=== PATIENT | male | born 1930 | race Caucasian/White ===

== ENCOUNTER 2016-12-13 12:08 | Inpatient (IN) | payer MEDICARE, BC ==
--- NOTE | 2016-12-13 14:10 | NUR ---
Received patient from [facility], patient was admitted there on 11/24/16 for following hospitalization for Flu like symptoms, he was admitted there for Therapy, patient over several weeks has been getting increasingly confused, agitated, combative with staff and family, in and out of residents room and decrease sleep. Arrived here per [facility] staff in W/C, head down and will not verbalize to staff, he however tightly holds his arms back and snatches arm away with attempts to obtain vital signs and assess for any belongings, refusing to cooperate. Chair alarm placed and is functioning properly. Patient transported to day room. Contacted patient son Tristan Crawford who is POA, consent obtained to treat, gave medical history of no known Dementia but would like him tested, reports that up until hospitalization in November patient was with it and taking care of himself. States goal of patient returning home if diagnosis does not permit this, if so he has spoken with social media analyst Soco at [facility], sheo states willing to accept him there until he can get some arrangements made. Educated on unit and plan of care to be established, visitation hours , call hours and unit number to call for updates. Verbalized understanding.
[2016-12-13] MEDS ORDERED: MELATONIN 3 MG1 TAB PO (15:05)
[2016-12-13] MEDS ORDERED: LANTUS INSULIN10 ML SC (15:06)
[2016-12-13] MEDS ORDERED: FLOMAX0.4 MG PO (15:07)
[2016-12-13] MEDS ORDERED: GLUCOTROL 5 MG T5 MG PO (15:08)
[2016-12-13] MEDS ORDERED: MEXITIL 150 MG150 MG PO (15:09)
[2016-12-13] MEDS ORDERED: SEROQUEL25 MG PO (15:09)
[2016-12-13] MEDS ORDERED: ATIVAN0.5 MG PO (15:10)
[2016-12-13] MEDS ORDERED: NOVOLOG100 U/M1 SC (15:16)
[2016-12-13] MEDS ORDERED: HUMALOG 30100 UNITS/ SQ (15:32)
[2016-12-13 15:33] LABS: BASOPHILS 1.1 % (0.0-2.0); EOSINOPHILS 8.9 % (0-7); HEMATOCRIT 37.2 % (42.0-54.0); IMMATURE GRANULOCYTES 0.2 % (0-5); LYMPHOCYTES 37.1 % (15-50); MCH 29.6 pg (26.0-34.0); MCHC 32.3 g/dL (31.0-37.0); MCV 91.9 fL (80.0-100.0); MEAN PLATELET VOLUME 9.8 fL (7.4-10.4); MONOCYTES 9.8 % (2-11); NEUTROPHILS 42.9 % (40-80); PLATELET COUNT 182 10x3/uL (130-400); RBC 4.05 10x6/uL (4.20-6.10); RDW 13.6 % (11.5-14.5); WBC 4.5 10x3/uL (4.8-10.8)
[2016-12-13] MEDS ORDERED: NOVOLOG100 U/M1 SQ (15:36)
[2016-12-13 15:58] LABS: HEMOGLOBIN A1C 8.7 % (4.8-6.0)
[2016-12-13 16:00] VITALS: BP 119/76
--- NOTE | 2016-12-13 16:00 | NUR ---
Patient now cooperative for vital signs and partially for EKG, required assistance. Continues to resist complete assessment.
[2016-12-13 16:35] LABS: ALBUMIN 3.4 g/dL (3.4-5.0); ALKALINE PHOSPHATASE 79 U/L (46-116); ALT (SGPT) 20 U/L (10-68); BILIRUBIN - TOTAL 0.27 mg/dL (0.2-1.3); CALC OSMOLALITY 281 mosm/kg (275-300); CALCIUM 8.9 mg/dL (8.5-10.1); CARBON DIOXIDE 26.9 mmol/L (21.0-32.0); CHLORIDE - SERUM 104 mmol/L (98-107); CHOL - HDL RATIO 2.6 ratio (2.3-4.9); CHOLESTEROL, TOTAL 179 mg/dL (0-200); CREATININE - SERUM 0.9 mg/dL (0.6-1.3); GLUCOSE 136 mg/dL (74-106); HDL CHOLESTEROL 69 mg/dL (32-96); LDL CHOLESTEROL 88 mg/dL (0-100); LDL-HDL RATIO 1.3 ratio (1.5-3.5); POTASSIUM - SERUM 3.8 mmol/L (3.5-5.1); PROTEIN - SERUM 6.8 g/dL (6.4-8.2); SODIUM 141 mmol/L (136-145); THYROID STIMULATING HORMONE 6.01 uIU/mL (0.36-3.74); TRIGLYCERIDE 112 mg/dL (30-200); UREA NITROGEN 9 mg/dL (7-18); eGFR NON AFRICAN AMERICAN 85 mL/min (90-120)
--- NOTE | 2016-12-13 17:15 | NUR ---
Refused to eat supper, continues to refuse assessment,looks at nurse and turns his head, would not answers nurse questions, only would knod no to question of if he had dentures.
--- NOTE | 2016-12-13 20:08 | NUR ---
RECEIVED IN DAYROOM. SITTING IN WHEELCHAIR. AGGRESSION WITH STAFF DURING CARE. REFUSED VITALS. ALLOWED BASIC ASSESSMENT BY NURSE. VERY HEAD OF HEARING. REDIRECT AND REORIENT NEEDED. CONTINUES TO SIT IN WHEELCHAIR WITH EYES CLOSED. CONTINUE PLAN OF CARE
[2016-12-14 08:51] VITALS: BP 91/74
--- NOTE | 2016-12-14 18:00 | NUR ---
RECEIVED THIS AM SITTING IN WHEELCHAIR.ORIENTED TO SELF ONLY.NO SIGNS OF AGGRESSION .COMPLIANT WITH MEDS.KAKE.DOES BECOME NONCOMPLIANT LATE IN EVENING WITH STAFF.WILL CONTINUE WITH PLAN OF CARE,MONITOR FOR CHANGES AND SAFETY.
--- NOTE | 2016-12-14 19:34 | NUR ---
RECEIVED IN DAYROOM. SITTING IN WHEELCHAIR WITH EYES CLOSED. RESPONDS TO TOUCH. VERY HARD OF HEARING. CALM AND COOPERATIVE WITH CARE AND ASSESSMENT. NO SIGNS OF AGGRESSION. ENCOURAGE TO EXPRESS NEEDS. CONTINUES TO REST WITH EYES CLOSED. CONTINUE PLAN OF CARE
[2016-12-14 22:25] VITALS: BP 91/53
[2016-12-15 06:14] LABS: RAPID PLASMA REAGIN Non Reactive (Non Reactive)
[2016-12-15 08:21] LABS: FOLATE (FOLIC ACID) - SERUM 16.6 ng/mL (>3.0)
[2016-12-15 08:44] VITALS: BP 101/66
[2016-12-15 09:18] LABS: VITAMIN D 25 HYDROXY 17.6 ng/mL (30.0-100.0)
--- NOTE | 2016-12-15 11:13 | NUR ---
B) PATIENT IS CONFUSED, HE KNOWS HIS NAME, BUT NOT WHERE HE IS LOCATED, HE IS CALM AND POLITE, HE HAS NOT SHOWN ANY AGGRESSION TODAY, HE HAS TRIED TO GET UP AND STAND, BUT HE IS UNSTEADY, UNSURE IF HE WALKS. HE DOES SAY HE IS LOOKING FOR HIS AND CALLS OUT DIFFERENT LADIES NAMES. HE HAS ANSWERED SOME QUESTIONS APPROPRIATELY. I) PROVIDE PRESCRIBED MEDS. R) PATIIENT IS COMPLIANT WITH MEDS AND HE REQUIRES MUCH REDIRECTION. P) CONTINUE PLAN OF CARE.
[2016-12-15 20:00] VITALS: BP 98/60
--- NOTE | 2016-12-15 23:19 | NUR ---
B) Recieved patient in the day room in a cody chair, alert and oriented to name, restless and combative with redirect, patient tries to stand unassisted, I) Administered perscribed medications crushed in apple sauce, monitored for falls and safety, R) medication compliant, yells out at times, talks in word salad and unrelated topics at times. P) Continue plan of care.
--- NOTE | 2016-12-15 23:23 | NUR ---
PRN Haldol 2 mg IM given for anxiety at 2140.
[2016-12-16 09:05] VITALS: BP 120/65
--- NOTE | 2016-12-16 10:26 | PSY ---
PATIENT NAME:MO PRECIADO MEDICAL RECORD: [id number] : 28 LOCATION:[facility] ADMISSION DATE: 12/13/16 ACCOUNT: [id number] PSYCHIATRIC EVALUATION DATE OF EVALUATION: 12/14/16 IDENTIFYING DATA: This is the first Alf admission for this 86-year-old white male. HISTORY OF PRESENT ILLNESS: This patient was accepted on transfer from [facility]. He had been admitted there in the middle of last month. Prior to that, he had been hospitalized because of an apparent viral syndrome and overall decline. During his stay at [place], the patient has shown considerably worsened mentation. He has become increasingly confused and disoriented showing severe memory deficits. He has also began exhibiting aggressiveness and poor cooperation with staff. Because of worsening agitation and the fact that patient is now intruding on other clients at the custodial and has been combative, not only with staff, but with his own family members, the patient is now admitted. Subsequent to admission, the patient has been extremely uncooperative. He is briefly combative when staff attempts to do ordinary activities such as vital signs and so forth. He has been virtually mute (this may be worsened by the fact that he has hearing impairment). There is no previous history of dementia. The patient will undergo testing here. The patient's son is power of deputy commonwealth's attorney. PAST MEDICAL HISTORY: The patient has a number of ongoing medical problems including type 2 diabetes, hypertension, hypothyroidism, cardiac arrhythmias, history of prostate cancer and the above-mentioned hearing impairment. MEDICATIONS: At the time of admission included Flomax, Synthroid, Glucotrol, melatonin, Seroquel, ____, Lantus insulin. FAMILY HISTORY: Noncontributory. ALLERGIES: THE PATIENT IS ALLERGIC TO PENICILLIN DRUGS. SOCIAL HISTORY: The patient is a custodial resident. He does have family involved in his care. No known substance abuse issues. MENTAL STATUS: On interview, the patient is very poorly cooperative. He orients only briefly toward the examiner, does not cooperate any meaningful degree for interview. Mood is irritable. Affect is very brittle. Speech is quite terse. Content of thought cannot be formally assessed, but appears to be positive for paranoid ideation. The patient is oriented only to person and shows global memory impairment. 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 AXIS II: No diagnosis. AXIS III: Type 2 diabetes, hypertension, hypothyroidism, cardiac arrhythmias, history of prostate cancer. AXIS IV: Severe. AXIS V: 30. PLAN: 1. The patient is admitted for further medical and psychiatric workup. 2. Daily supportive therapy. 3. We will coordinate with family and custodial regarding aftercare. TRANSINT:[id number] Voice Confirmation ID: [id number] DOCUMENT ID: [id number] NLIES REES III, MD at 1026 CC: [id number] DICTATION DATE: 12/14/16 1119 INTERNET CONSULTANT: 12/14/16 1141 ADM IN [facility] [address] [place] [place] [id number]
--- NOTE | 2016-12-16 11:26 | NUR ---
B) PATIENT IS QUIET AND CALM, BUT HE IS CONFUSED. HE FUSSES ABOUT HIS MEDICATIONS, BUT IRIS WAS ABLE TO GIVE HIS MEDS. HE QUESTIONED EVERY ONE, BUT DID TAKE THEM. 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 I) PROVIDE PRESCRIBED MEDS AND REDIRECT NEEDED. R) PATIENT IS SITTING IN DAY ROOM AND SHE IS RESTING EASILY. P) CONTINUE PLAN OF CARE.
--- NOTE | 2016-12-16 13:59 | NUR ---
Nutrition Follow Up: Chart reviewed. Pt is eating 85% meal avg on a diabetic [facility] soft diet with nectar thick liquids. No BM since admit. No new labs/wt to assess. Meds noted including Glipizide, Lantus. Pt with good po intake at this time. Rec continue current diet per [employer] recs. RD following.
--- NOTE | 2016-12-16 14:31 | PN ---
PATIENT:MO PRECIADO MEDICAL RECORD: [id number] LOCATION:[facility] ADMISSION DATE: 12/13/16 PROGRESS NOTE DATE OF SERVICE: 12/15/2016 SUBJECTIVE: The patient's case was discussed with staff. He has no new complaint. OBJECTIVE: The patient has been aggressive with staff. He has very poor insight about his situation. He is severely impaired and he is having difficulty processing the information in his environment. He will be given a low dose of Xanax to assist with his thought disorganization. His prognosis is guarded and brief supportive and educational interventions were made. TRANSINT:[id number] Voice Confirmation ID: [id number] DOCUMENT ID: [id number] BURT ALMONTE MD at 1431 CC: [id number] DICTATION DATE: 12/15/[address] PAINTER: 12/15/16 1425 ADM IN [place] [id number] [place] [id number]
[2016-12-16 19:30] VITALS: BP 93/61
--- NOTE | 2016-12-16 22:07 | PN ---
PATIENT:MO PRECIADO MEDICAL RECORD: [id number] LOCATION:[facility] ADMISSION DATE: 12/13/16 PROGRESS NOTE DATE OF SERVICE: 12/16/2016 SUBJECTIVE: No new complaint. OBJECTIVE: The patient continues to be poorly cooperative. He did require p.r.n. Haldol last night because of agitation. This morning, the patient is more drowsy. Mood is euthymic. Affect is constricted. Speech is very terse. Content of thought is positive for nonspecific paranoid ideation. Sensorium is unchanged. ASSESSMENT: No change in diagnosis. PLAN: 1. Maintain current medications. 2. Continue supportive therapy. TRANSINT:[id number] Voice Confirmation ID: [id number] DOCUMENT ID: [id number] NILES REES III, MD at 2207 CC: [id number] DICTATION DATE: 12/16/16 1145 ECOMMERCE MANAGER: 12/16/16 1426 ADM IN [place] [address] [place] [address]
--- NOTE | 2016-12-17 01:07 | NUR ---
B) Recieved patient sitting in gerichair in the day room, alert and oriented to self, restless and attempting to stand unassisted I) Administered perscribed medications, PRN Ativan 0.5 mg PO and Haldol 2 mg IM given for anxiety R) Medication compliant, resting quietly now, P) Continue plan of care.
--- NOTE | 2016-12-17 07:49 | NUR ---
LATE ENTRY FROM 12/16/16 RAOUL SPOKE WITH PT'S SON, AYESHA, ABOUT DISCHARGE PLANNING AND PLACING PT IN CHECKERING MACHINE ADJUSTER CARE. RAOUL ALSO EDUCATED SON ON DISEASE PROCESS AND HANDED OUT BROCHURES ON [employer]. RAOUL SET [facility] S[facility] WITH [facility] DEAF RIZWAN DIXON.
[2016-12-17 08:32] VITALS: BP 117/68
--- NOTE | 2016-12-17 09:40 | NUR ---
B) PATIENT IS CONFUSED, HE IS SITTING IN A SHAVON CAHIR AND HE TURNS HIMSELF SIDEWAYS IN THE CHAIR AND HAS HIS FEET DANGLING OUT, HIS BACK IS ON THE WOOD. HE LEANS OVER AND REACHES FOR OBJECTS THAT ARE NOT THERE. HE IS NOT AGGRESSIVE AT THE TIME, BUT WHEN PT CAME TO WORK WITH HIM HE DID BECOME AGITATED AND AGGRESSIVE. PATIENT IS [place]. I) PROVIDE PRESCRIBED MEDS. R) PATIENT IS COMPLIANT WITH MEDS, HE HAS TO FED AND GIVEN FLUIDS HE WILL NOT DO IT HIMSELF, BUT JUST BRIEFLY. P) CONTINUE PLAN OF CARE.
[2016-12-17 19:30] VITALS: BP 135/92
--- NOTE | 2016-12-17 20:00 | NUR ---
B) RECEIVED IN DAYROOM SITTING IN SHAVON-CHAIR WITH EYES CLOSED. CALM AND QUIET WITH ASSESSMENT. NO DISTRESS NOTED. I) ADMINISTERED PRESCRIBED MEDS CRUSHED IN APPLESAUCE. VSS. R) MEDICATION COMPLIANT. RESTLESS. P) CONTINUE PLAN OF CARE.
[2016-12-18 07:44] VITALS: BP 99/49
--- NOTE | 2016-12-18 12:16 | NUR ---
(B)RECEIVED PATIENT LAYING IN BED. ORIENTED TO SELF ONLY. POOR INSIGHT INTO THE REASON FOR HOSPITALIZATION. SPEECH GARBLED. DIFFICULTY FOLLOWING INSTRUCTIONS. (I)ADMINISTER MEDS AND MONITOR COMPLIANCE. REORIENT NEEDED. (R)MED COMPLIANT. POOR REORIENTATION DUE TO IMPAIRED ABILITY TO COMPREHEND, PROCESS AND RETAIN INFORMATION. MUMBLES TO SELF AND REACHES INTO MID AIR. (P)CONTINUE POC AND MAINTAIN FALL PRECAUTIONS.
--- NOTE | 2016-12-18 21:50 | NUR ---
B) Received patient in [facility]. Called Eap Consultant x 3 for Risperdal as is not in [facility]. Awaiting medication to be delivered to unit, patient has taken all his other medications crushed in chocolate pudding. Refused his vital signs being taken, made several attempts to obtain but each time patient swatted at staff. Did not obtain. Moans at times, flat affect unless trying to perform care then becomes angry. I) Administer medications as ordered, monitor behavior, redirect and reorient PRN. Educate on anger management. R) Does not answer or respond verbally to staff, uncertain if he even knows his name. Could be or could not be oriented to person. When approached with his medications and called by name said 'ok' and seemed to acknowledge his name. P) Monitor per plan of care.
--- NOTE | 2016-12-18 23:21 | NUR ---
AIR DEODORIZER SERVICER JUST NOW ON UNIT WITH 2100 DOSE OF RISPERDAL. SAME GIVEN IN CHOCOLATE PUDDING.
--- NOTE | 2016-12-19 06:18 | PN ---
PATIENT:MO PRECIADO MEDICAL RECORD: [id number] LOCATION:[facility] ADMISSION DATE: 12/13/16 PROGRESS NOTE DATE OF SERVICE: 12/17/2016 SUBJECTIVE: No new complaint. OBJECTIVE: The patient continues to be restless at night. He did require p.r.n. Haldol and Ativan. Today, the patient is not as responsive. He continues to show profound mental status deficits. He was essentially untestable for neuropsychological testing. On exam, mood is euthymic. Affect is constricted. Speech is minimal. Content of thought seems to focus only on somatic concerns. Sensorium shows no improvement. ASSESSMENT: No change in diagnosis. PLAN: 1. Maintain current medication. 2. Continue supportive therapy. TRANSINT:[id number] Voice Confirmation ID: [id number] DOCUMENT ID: [id number] NILES REES III, MD at 0618 CC: [id number] DICTATION DATE: 12/17/16 1234 DEPUTY K 9: 12/17/16 2108 ADM IN [place] [id number] [place] [id number]
[2016-12-19 07:48] VITALS: BP 117/76
--- NOTE | 2016-12-19 16:59 | NUR ---
RECEIVED UP IN RECLINER THIS AM SLEEPING.WAS UNABLE TO AROUSE ENOUGH TO ADMINISTER MEDS.SON VISITED AND WAS ABLE TO GET HIM TO OPEN EYES BUT HE WENT RIGHT BACK TO SLEEP.RESP ARE REGULAR AND EVEN,NO SIGNS OF ACUTE DISTRESS.WILL CONTINUE WITH PLAN OF CARE AND MONITOR FOR SAFETY AND CHANGES.
[2016-12-19 19:30] VITALS: BP 165/79
--- NOTE | 2016-12-20 00:37 | NUR ---
PATIENT IN DAYROOM, LAYING IN RECLINER. RESPONDS TO NAME AND FOLLOWS COMMANDS. COMPLIANT WITH MEDICATION. NO AGRESSION, TRIES TO GET UP WITHOUT ASSISTANCE. PATIENT REORIENTED, BUT IS VERY CONFUSED. PATIENT ORIENTED TO SELF ONLY. CONTINUE TO MONITOR.
[2016-12-20 07:46] VITALS: BP 108/47
--- NOTE | 2016-12-20 08:45 | PN ---
PATIENT:MO PRECIADO MEDICAL RECORD: [id number] LOCATION:[facility] ADMISSION DATE: 12/13/16 PROGRESS NOTE DATE OF SERVICE: 12/19/2016 SUBJECTIVE: No new complaint. OBJECTIVE: The patient continues to exhibit agitation at night. He was briefly combative with staff this morning. The patient is next quieter, but remains somewhat restless. On exam, mood is rather irritable. Affect is brittle. Speech is very terse. Content of thought is negative for overt psychosis. Sensorium is unchanged. ASSESSMENT: No change in diagnosis. PLAN: 1. Maintain current treatment plan. 2. Continue supportive therapy. TRANSINT:[id number] Voice Confirmation ID: [id number] DOCUMENT ID: [id number] NILES REES III, MD at 0845 CC: [id number] DICTATION DATE: 12/19/16 0827 GAS PUMPER: 12/19/16 1048 ADM IN [place] [id number] [place] [address]
[2016-12-20 13:00] VITALS: BP 105/60
--- NOTE | 2016-12-20 17:45 | NUR ---
Alert and oriented to name, resistant to care, pulls his arms back and pushes staff away. Administer medications and monitor compliance. Monitor for any aggression. Assist with meals and encourage fluids. Monitor safety. Compliant with am medications and drank alittle water, allowed tech to feed him breakfast, consumed 80 %. No aggression, just pulls against you with any care. Refused 1700 medication. Safety maintained. Continue with plan of care.
--- NOTE | 2016-12-20 18:01 | NUR ---
fluids encouraged, patient only would take a few sips at a time.
--- NOTE | 2016-12-20 19:55 | NUR ---
RECEIVED IN DAYROOM. LAYING IN RECLINING CHAIR. CONFUSED. CALM AND COOPERATIVE WITH CARE AND ASSESSMENT. NO SIGNS OF AGGRESSION. REDIRECT AND REORIENT NEEDED. CONTINUES TO REST QUIETLY IN RECLINER. CONTINUE PLAN OF CARE
[2016-12-20 20:00] VITALS: BP 103/63
[2016-12-21 07:25] VITALS: BP 96/52
--- NOTE | 2016-12-21 09:51 | NUR ---
(B)RECEIVED PATIENT SITTING IN A CHAIR AT THE NURSE'S STATION. ORIENTED TO SELF ONLY. YELLING OUT LOUD. DIFFICULTY FOLLOWING INSTRUCTIONS. (I)ADMINISTER MEDS AND MONITOR COMPLIANCE. REORIENT NEEDED. (R)MED COMPLIANT. POOR REORIENTATION DUE TO IMPAIRED ABILITY TO COMPREHEND, PROCESS AND RETAIN INFORMATION. (P)CONTINUE POC AND MAINTAIN FALL PRECAUTIONS.
--- NOTE | 2016-12-21 10:19 | PN ---
PATIENT:MO PRECIADO MEDICAL RECORD: [id number] LOCATION:[facility] ADMISSION DATE: 12/13/16 PROGRESS NOTE DATE OF SERVICE: 12/20/2016 SUBJECTIVE: No new complaint. OBJECTIVE: Staff reports the patient has become considerably more lethargic. He slept most of the night and is drowsy again this morning medication was held yesterday morning. On exam, mood is euthymic. Affect very constricted. Speech minimal. Content of thought unchanged. Sensorium unchanged. ASSESSMENT: No change in diagnosis. PLAN: 1. Discontinue Xanax. 2. Reduce Risperdal to 0.5 mg b.i.d. 3. Continue other current medications and supportive therapy. TRANSINT:[id number] Voice Confirmation ID: [id number] DOCUMENT ID: [id number] NILES REES III, MD at 1019 CC: [id number] DICTATION DATE: 12/20/16 1046 RAMP LEAD: 12/20/16 1447 ADM IN [place] [id number] [place] [id number]
--- NOTE | 2016-12-21 15:26 | NUR ---
NUTRITION MONITORING & EVAL CHART REVIEWED. SPOKE WITH NURSING AND CREAM SEPARATOR OPERATOR. PT WITH 45% AVERAGE INTAKE PAST FOUR MEALS. LAST RECORDED BM ON 12/17/16. WILL CONTINUE TO PROVIDE MECH SOFT NCS DIET. MONITOR PT PROGRESS. RD FOLLOWING
[2016-12-21 19:16] VITALS: BP 130/77
--- NOTE | 2016-12-21 19:43 | NUR ---
Received in dayroom. Laying in reclining chair with eyes closed. Responds to touch. Not yelling out. Calm and cooperative with care and assessment. No signs of aggression. encourage to verbalize needs. Remains in recliner with eyes closed. Continue plan of care.
[2016-12-22 08:06] VITALS: BP 114/63
--- NOTE | 2016-12-22 10:21 | PN ---
PATIENT:MO PRECIADO MEDICAL RECORD: [id number] LOCATION:[facility] ADMISSION DATE: 12/13/16 PROGRESS NOTE DATE OF SERVICE: 12/21/2016 SUBJECTIVE: No new complaint. OBJECTIVE: The patient continues to show occasional agitation, but overall is improved. He is tolerating his medications and not as somnolent this morning as on previous recent mornings. On exam, mood is slightly anxious. Affect is very constricted. Speech is nonsensical. Content of thought is negative for overt psychosis. Sensorium shows no change. ASSESSMENT: No change in diagnosis. PLAN: 1. Continue current medications. 2. Continue supportive therapy. TRANSINT:[id number] Voice Confirmation ID: [id number] DOCUMENT ID: [id number] NILES REES III, MD at 1021 CC: [id number] DICTATION DATE: 12/21/16 1134 IT INFRASTRUCTURE SPECIALIST: 12/21/16 1757 ADM IN [place] [id number] [place] [address]
--- NOTE | 2016-12-22 18:01 | NUR ---
(B) RECEIVED PATIENT SITTING IN A CHAIR AT THE NURSE'S STATION. MORE LETHARGIC TODAY. MUMBLES UNRECOGNIZABLE WORDS. WILL OPEN EYES FOR SHORT PERIODS. OBSERVED REACHING INTO MID AIR AT TIMES. (I)ADMINISTER MEDS AND MONITOR COMPLIANCE. PROMPT PATIENT TO EAT MEALS. (R)MED COMPLIANT. REMAINS LETHARGIC WITH LITTLE INTAKE. (P)CONTINUE POC AND MAINTAIN FALL PRECAUTIONS.
[2016-12-22 20:39] VITALS: BP 140/70
--- NOTE | 2016-12-23 00:24 | NUR ---
B) Recieved patient laying in a cody chair in the day room, sleeping , will open eyes for when arroused for short periods of time, I) Administered perscribed medications, monitored for safety and falls, R) Medication compliant after several attempts, P) Continue plan of care, continue to monitor.
--- NOTE | 2016-12-23 03:55 | PN ---
PATIENT:MO PRECIADO MEDICAL RECORD: [id number] LOCATION:[facility] ADMISSION DATE: 12/13/16 PROGRESS NOTE DATE OF SERVICE: 12/22/2016 SUBJECTIVE: No new complaint. OBJECTIVE: The patient is somewhat more alert. He is tolerating his medications well at this point. Family has been in contact with case management. They are considering trying to get hospice home health, but it is unclear as to whether or not this can be accomplished. On exam, mood is slightly anxious. Affect is constricted. Speech is rather terse. Content of thought is negative for overt psychosis. Sensorium is unchanged. ASSESSMENT: No change in diagnosis. PLAN: 1. Continue present medications. 2. Continue supportive therapy. TRANSINT:[id number] Voice Confirmation ID: [id number] DOCUMENT ID: [id number] NILES REES III, MD at 0355 CC: [id number] DICTATION DATE: 12/22/16 1131 ASSEMBLER MUSICAL EQUIPMENT: 12/22/[address] [facility] [address] [place] [address]
--- NOTE | 2016-12-23 14:32 | NUR ---
(B)RECEIVED PATIENT SITTING IN A CHAIR AT THE NURSE'S STATION. ORIENTED TO SELF ONLY. POOR INSIGHT INTO THE REASON FOR HOSPITALIZATION. LETHARGIC HOWEVER IS ALERT AT TIMES AND IS ABLE TO FEED SELF WHEN AWAKE. GARBLED AND MUMBLES. (I)ADMINISTER MEDS AND MONITOR COMPLIANCE. REORIENT NEEDED. (R)MED COMPLIANT. POOR REORIENTATION APPEARS TO NOT COMPREHEND, PROCESS OR RETAIN INFORMATION. (P)CONTINUE POC AND MAINTAIN FALL PRECAUTIONS.
[2016-12-23 20:59] VITALS: BP 109/37
--- NOTE | 2016-12-24 02:18 | NUR ---
PATIENT IN DAYROOM IN RECLINER, LETHARGIC, RESPONDS TO NAME AND FOLLOWS DIRECTION. HE WAS COMPLIANT WITH MEDICATION, NO AGGRESSION. PATIENT IS INTERMITTENTLY TALKING TO SELF, SHOWING SIGNS OF HALLUCINATIONS. HE WAS REORIENTED. CONTINUE TO MONITOR.
--- NOTE | 2016-12-24 07:30 | NUR ---
B) PATIENT IS AWAKE AND HE IS TALKING NONSENSICAL. GENERAL HELPER REPORTED THAT HE HAS A DECUB TO UPPER BUTTOCKS AND AND A BLISTER ON LUWER LUMBAR, MEPILEX APPLIED AND PLACED PATIENT ON A LUKE MAT, WILL ASK DR. BLANCO ABOUT WOUND CARE CONSULT. I) PROVIDE PRESCRIBED MEDS, REPOSITION Q 2 HOURS TO GET PATIENT OFF OF BUTTOCKS. R) PROVIDE PRESCRIBED MEDS. P) CONTINUE PLAN OF CARE.
[2016-12-24 07:53] VITALS: BP 98/56
--- NOTE | 2016-12-24 10:33 | NUR ---
HELD PATIENT'S AM MEDS BECAUSE HE IS TOO SLEEPY AT THIS TIME.
--- NOTE | 2016-12-24 10:57 | NUR ---
HELD AM MEDS PATIENT IS TOO SLEEPY.
--- NOTE | 2016-12-24 13:38 | PN ---
PATIENT:MO PRECIADO MEDICAL RECORD: [id number] LOCATION:[facility] ADMISSION DATE: 12/13/16 PROGRESS NOTE DATE OF SERVICE: 12/23/2016 SUBJECTIVE: The patient's case was discussed with staff. He has no new complaint. OBJECTIVE: The patient is in good behavioral control, but a little bit sleepy. He is not eating very well. His long-term prognosis is guarded. ASSESSMENT: No change in diagnoses. PLAN: The patient will be maintained on current medicines, which I have been reviewed. His long-term prognosis is guarded. TRANSINT:[id number] Voice Confirmation ID: [id number] DOCUMENT ID: [id number] BURT ALMONTE MD at 1338 CC: [id number] DICTATION DATE: 12/23/16 1246 CRYPTOANALYSIS TEACHER: 12/23/16 1606 ADM IN [facility] [address] [place] [address]
--- NOTE | 2016-12-24 14:43 | NUR ---
LATE ENTRY FROM 12/23/16 RAOUL MET WITH PT'S SON, AYESHA, TO DISCUSS DISCHARGE PLANNING. RAOUL INFORMED HIM THAT PT HAD BEEN ACCEPTED BY [facility]. PT WILL BE RETURNING HOME. RAOUL STATED FAMILY SHOULD HAVE A BACK UP PLAN IN PLACE IN CASE IN HOME CARE BECOMES DIFFICULT. SW SET UP PT'S SON WITH [facility] REFERRALS, PERSONAL [facility] REFERRALS, AND IN HOME SITTERS. PT'S SON EXPRESSED GRATITUDE FOR EDUCATION AND RESOURCES.
[2016-12-24 19:30] VITALS: BP 115/70
--- NOTE | 2016-12-25 01:40 | NUR ---
B) RECEIVED IN DAYROOM SITTING IN RECLINER. AWAKE AND ORIENTED TO NAME ONLY. STILL VERY CONFUSED, WITH MUMBLED AND GARBLED SPEECH. NO AGGRESSION NOTED. I) ADMINISTERED PRESCRIBED MEDICATIONS CRUSHED IN APPLESAUCE. VSS. R) MEDICATION COMPLIANT. CALM AND COOPERATIVE WITH ASSESSMENT AND CARE. P) CONTINUE WITH CURRENT PLAN OF CARE AND MONITOR FOR SAFETY AND CHANGES.
[2016-12-25 09:32] VITALS: BP 138/97
--- NOTE | 2016-12-25 11:52 | NUR ---
B) PATIENT IS MORE AWAKE THIS AM, HE DID TAKE HIS MEDICATIONS, HE IS EATING AND STAFF ARE ENCOURAGING HIM AND OFFERING HIM MORE FLUIDS. HE IS TURNED FROM SIDE TO SIDE Q 2 HOURS, BUT HE MANAGES TO ROLL TO HIS BACK. HE HAS A DECUB TO BUTTOCKS THAT WAS SHEARING, NOW IT LOOKS LIKE SKIN IS PEELING OFF. NEW MEPILEX APPLIED AFTER CLEANSING AREA. I) PROVIDE PRESCRIBED MEDS. R) PATIENT IS QUIET TODAY. HE HAS NOT SHWON ANY AGGRESSION. P) CONTINUE POC.
[2016-12-25 19:30] VITALS: BP 98/57
--- NOTE | 2016-12-25 20:00 | NUR ---
RECEIVED IN DAYROOM SITTING IN RECLINER WITH STAFF. AWAKE AND ALERT TO NAME. CALM AND COOPERATIVE WITH CARE AND ASSESSMENT. NO SIGNS OF AGGRESSION. REDIRECT AND REORIENT NEEDED. CONTINUES TO SIT QUIETLY IN RECLIONER. CONTINUE PLAN OF CARE AND MONITOR FOR SAFETY AND CHANGES.
[2016-12-26 07:00] VITALS: BP 90/52
--- NOTE | 2016-12-26 14:56 | NUR ---
PATIENT SITTING IN DAYROOM, EATING WITH ASSISTANCE. AWAKE BUT DELUSIONIONAL. PATIENT ORIENTED TO SELF ONLY. HE WAS REORIENTED, AND REPOSITIONED Q 30 MINUTES. PUSHING FLUIDS. CONTINUE TO MONITOR, CONTINUE PLAN OF CARE
[2016-12-26 19:30] VITALS: BP 111/79
--- NOTE | 2016-12-27 03:27 | NUR ---
B) Recieved patient in the day room in a cody chair, alert and oriented to self, restless at times, unaware of his surroundings, I) Administered perscribed medications crushed in apple sauce, monitored for falls and safety, R) Medication compliant, resting now in bed, yelling out at times, P) CPOC, continue to monitor.
[2016-12-27 07:00] VITALS: BP 96/48
--- NOTE | 2016-12-27 14:09 | PN ---
PATIENT:MO PRECIADO MEDICAL RECORD: [id number] LOCATION:[facility] ADMISSION DATE: 12/13/16 PROGRESS NOTE DATE OF SERVICE: 12/24/2016 SUBJECTIVE: The patient's case was discussed with staff. He has no new complaint. OBJECTIVE: The patient is disorganized with limited insight. He is severely impaired cognitively. He still looks sedated, but much less so than yesterday. He is not eating well, but that was a problem that has been ongoing. ASSESSMENT: No change in diagnoses. PLAN: Apparently, the patient has been accepted by hospice and I would anticipate he can be transitioned out of the hospital soon. His long-term prognosis is guarded. TRANSINT:[id number] Voice Confirmation ID: [id number] DOCUMENT ID: [id number] BURT ALMONTE MD at 1409 CC: [id number] DICTATION DATE: 12/24/16 1329 UNDERGROUND SUPERVISOR: 12/24/16 2044 ADM IN [id number] [place] [address]
--- NOTE | 2016-12-27 14:24 | NUR ---
B.) Received this am lying in bed awake, alert and oriented to self only. I.) Administer mediations and monitor compliance. Redirect for any aggression, monitor for any hallucinations. Monitor intake. R.) Refused medications, would bite on spoon and not swallow medication. Fed breakfast, consumed 20 %. Combative with am care, able to redirect and position in chair, mepilex dressing to bottom and christiano cushion to chair. Occasionally noted to have lifted hand in air with motion of pulling on something. Safety maintained. P.) Continue plan of care.
--- NOTE | 2016-12-27 14:30 | NUR ---
Lying quietly with eyes closed, fluids encouraged, repositioned often.
[2016-12-27 19:30] VITALS: BP 115/69
--- NOTE | 2016-12-27 19:59 | NUR ---
RECEIVED IN DAYROOM. LAYING IN RECLINING CHAIR WITH EYES CLOSED. RESPONDS TO TOUCH. VERY CONFUSED. CALM AND COOPERATIVE WITH CARE AND ASSESSMENT. NO SIGNS OF AGGRESSION. REDIRECT AND REORIENT NEEDED. CONTINUES TO REST WITH EYES CLOSED IN RECLINER. CONTINUE PLAN OF CARE
--- NOTE | 2016-12-28 10:59 | NUR ---
Nutrition Follow Up: Chart review. Pt to have hospice upon d/c. Noted pt needs feeding assistance. Pt is eating 45% meal avg on a Diabetic [facility] soft diet with nectar thick liquids. No wt in chart as pt refused to be weighed. Labs reviewed - Glucose continues elevated. Meds noted including Vit D, Glipizide, Lantus. Pt with stage II ulcer. No BM since admit - x 8 days. Pt with poor po intake at this time. Will liberalize diet to encourage po intake. Rec consider bowel regimen as pt has not had a BM x 8 days. Rec MV, Vit C supplement daily. Will continue to send selective menus and honor food preferences. RD will continue to monitor pt progress.
--- NOTE | 2016-12-28 14:22 | PN ---
PATIENT:MO PRECIADO MEDICAL RECORD: [id number] LOCATION:[facility] ADMISSION DATE: 12/13/16 PROGRESS NOTE DATE OF SERVICE: 12/27/2016 SUBJECTIVE: No coherent complaint. The patient is unable to articulate any meaningful statement. OBJECTIVE: On examination, the patient is minimally responsive. He is awake and orients to the speaker, but does not engage in any kind of meaningful conversation, mood is slightly anxious. Affect overall is brittle. Speech is nonsensical. Content of thought cannot be assessed. Sensorium is unchanged. ASSESSMENT: No change in diagnosis. PLAN: 1. Maintain supportive therapy. 2. Adjust medications as indicated. TRANSINT:[id number] Voice Confirmation ID: [id number] DOCUMENT ID: [id number] NILES REES III, MD at 1422 CC: [id number] DICTATION DATE: 12/27/16 1050 DRAPERY MAKER: 12/27/162003 ADM IN [facility] [address] [place] [address]
--- NOTE | 2016-12-28 18:32 | NUR ---
PATIENT IN DAYROOM IN RECLINER RESTING WITH EYES CLOSED. HE IS ORIENTED TO SELF ONLY. PATIENT HAS BEEN LETHARGIC. IT WAS DIFFICULT FOR HIM TO STAY AWAKE AT DINNER. CONTINUE TO MONITOR. CONTINUE PLAN OF CARE.
[2016-12-28 19:52] VITALS: BP 108/55
--- NOTE | 2016-12-28 19:57 | NUR ---
RECEIVED IN DAYROOM. LAYING IN RECLINING CHAIR WITH EYES CLOSED. RESPONDS TO TOUCH. CALM AND COOPERATIVE WITH CARE AND ASSESSMENT. NO SIGNS OF HALLUCINATIONS OR AGGRESSION. REDIRECT AND REORIENT NEEDED. CONTINUES TO REST IN RECLINER. CONTINUE PLAN OF CARE
[2016-12-29 08:00] VITALS: BP 114/50
--- NOTE | 2016-12-29 10:23 | PN ---
PATIENT:MO PRECIADO MEDICAL RECORD: [id number] LOCATION:[facility] ADMISSION DATE: 12/13/16 PROGRESS NOTE DATE OF SERVICE: 12/28/2016 SUBJECTIVE: Mr. Preciado is doing better overall. He is somewhat more talkative and more compliant. He occasionally gets agitated, but for the most, part he has shown considerable improvement. He does continue to exhibit some delusional ideation. Affect is rather brittle. Speech is nonsensical. Sensorium is unchanged. ASSESSMENT: 1. Psychotic disorder, not otherwise specified. 2. Dementia of Alzheimer's type. PLAN: 1. Continue current medications. 2. Continue supportive therapy. TRANSINT:[id number] Voice Confirmation ID: [id number] DOCUMENT ID: [id number] NILES REES III, MD at 1023 CC: [id number] DICTATION DATE: 12/28/16 1339 TIEING MACHINE OPERATOR: 12/28/16 2241 ADM IN [id number] [place] [address]
--- NOTE | 2016-12-29 13:59 | NUR ---
Received this am alert oriented to self only. moving around in cody chair and talking outloud, able to redirect to reposition without any aggression. Compliant with medications, calm and cooperative with care. Feed meals consuming 100 %. More alert today, encouraged fluids. Ant mat in chair, although patient does pull it out at time, mat replaced. Participated in group today with cathcing and throwing ball. Continue with plan of care and monitoring.
--- NOTE | 2016-12-29 14:54 | NUR ---
WOUND CARE CONSULT: PT NOTED TO HAVE STAGE 2 PRESSURE INJURY TO COCCYX ENTIRE AREA MEASURES 10CM X 10CM. PT IS INCONTINENT OF B&B AND REQUIRES NEAR TOTAL ASSIST WITH ADLS. RECOMMEND MEPILEX SACRAL DRESSING TO BOTTOM...CHANGING IT EVERY 3 DAYS AND IF IT BECOMES SOILED WITH URINE/FECES. REPOSITION HOURLY WHILE UP IN CHAIR AND Q2H WHILE IN BED.
--- NOTE | 2016-12-29 20:24 | PN ---
PATIENT:MO PRECIADO MEDICAL RECORD: [id number] LOCATION:[facility] ADMISSION DATE: 12/13/16 PROGRESS NOTE DATE OF SERVICE: 12/29/2016 SUBJECTIVE: No new complaint. OBJECTIVE: Overall, the patient is more alert. He is doing well in terms of taking his medications. We are awaiting on final placement plans. On exam, mood is euthymic. Affect is constricted. Speech is rather terse. Content of thought is negative for overt psychosis. Sensorium is unchanged. IMPRESSION: Psychosis, not otherwise specified; dementia. PLAN: 1. Continue all current medication. 2. Continue supportive therapy. TRANSINT:[id number] Voice Confirmation ID: [id number] DOCUMENT ID: [id number] NILES REES III, MD at 2024 CC: [id number] DICTATION DATE: 12/29/16 1100 MANAGER SOFTWARE DEVELOPMENT: 12/29/16 1316 ADM IN [id number] [place] [address]
[2016-12-29 21:16] VITALS: BP 16/54
--- NOTE | 2016-12-30 00:37 | NUR ---
B) Recieved sitting in the day room, alert and oriented to self, confused and trying to climb out of chair unassisted at times, I) Administered perscribed medications, monitored for falls and safety, R) Medication compliant, cooperative with care and assessment, P) Continue plan of care.
[2016-12-30 11:02] VITALS: BP 99/50
--- NOTE | 2016-12-30 12:28 | NUR ---
B) PATIENT IS AWAKE AND ALERT MORE TODAY, HE IS TALIKING, BUT NONSENSICAL, HE IS UNABLE TO FOLLOW SIMPLE DIRECTIONS. PATIENT HAS NOT SHOWN ANY SIGNS OF HALLUCINATIONS OR AGGRESSION TODAY. I) PROVIDE PRESCRIBED MEDS. R) PATIENT IS CALM AND PLEASANT AT THIS TIME, COMPLIANT WITH MEDS. P) CONTINUE PLAN OF CARE.
--- NOTE | 2016-12-30 13:36 | NUR ---
pt is very confused and continues to remove christiano mat. pt is restless and moves around alot in the chair which causes his bandages to move. pt is unable to follow directions. pt is a 1:1 with staff due to inability to understand direction. box alarm on and audible. will continue to monitor and continue to attempt to turn pt and bridge with pillows.
[2016-12-30 20:23] VITALS: BP 116/51
--- NOTE | 2016-12-31 01:47 | NUR ---
B) Recieved patient in the day room, alert and oriented to self, visual hallucinations; picking at things in the air, confused and unaware of surroundings I) Administered perscribed medications crushed in apple sauce, monitored for falls and safety, R) Medication compliant, restless and sleepless at night, P) Continue plan of care.
--- NOTE | 2016-12-31 08:04 | NUR ---
RAOUL MET WITH PT'S DIL, JASON, TO DISCUSS DISCHARGE PLANS FOR 12/31. PT WILL BE DISCHARGED TO THE HOME ENVIRONMENT. PT'S DIL STATED HOW APPRECIATIVE THE FAMILY IS FOR THE SERVICES ON THE UNIT. LATE ENTRY 12/30/16
[2016-12-31 09:32] VITALS: BP 114/67
--- NOTE | 2016-12-31 09:52 | PN ---
PATIENT:MO PRECIADO MEDICAL RECORD: [id number] LOCATION:[facility] ADMISSION DATE: 12/13/16 PROGRESS NOTE DATE OF SERVICE: 12/30/2016 SUBJECTIVE: No new complaint. OBJECTIVE: The patient continues to be somewhat uncooperative regarding wound care. This is due to his confusion. He does not have VA benefits, so he likely will be placed in a personal prison. He is having some difficulty swallowing and will likely remain on a soft diet. On exam, mood is slightly anxious. Affect is very shallow. Speech is tangential and rambling. Content of thought exhibits no overt psychosis. Sensorium shows no change. ASSESSMENT: No change in diagnosis. PLAN: 1. Continue all current medications. 2. Continue supportive therapy. TRANSINT:[id number] Voice Confirmation ID: [id number] DOCUMENT ID: [id number] NILES REES III, MD at 0952 CC: [id number] DICTATION DATE: 12/30/16 112 SENIOR MOBILE DEVELOPER: 12/30/16 1229 ADM IN [place] [id number] [place] [address]
[2016-12-31] MEDS ORDERED: TRAZODONE HCL50 MG PO (11:37)
[2016-12-31] MEDS ORDERED: RISPERDAL0.5 MG PO (11:37)
[2016-12-31] MEDS ORDERED: VITAMIN D5000 UNIT PO (11:38)
[2016-12-31] MEDS ORDERED: SYNTHROID25 MCG PO (11:38)
[2016-12-31] MEDS ORDERED: SENOKOT-S TABLE1 TAB PO (11:38)
--- NOTE | 2016-12-31 13:50 | NUR ---
B) PATIENT IS AWAKE TODAY. HE IS MORE TALKATIVE. HE DOES TRY TO GET OUT OF THE GERICHAIR. 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 PATIENT IS A TOTAL ASSIST. HE DOES HAVE A DECUB. STAGE 2 TO HIS BUTTOCKS WITH A DAILY DRESSING CHANGE. PATIENT TO D/C HOME TODAY. I) PROVIDE PRESCRIBED MEDS. R) PATIENT IS COMPLIANT WITH MEDS. P) CONTINUE D/C PLAN.
--- NOTE | 2016-12-31 15:13 | NUR ---
CALLED PATIENTS FAMILY TO GET ADDRESS TO WHERE PATIENT WILL BE GOING FOR D/C, CALLED [facility] TO GIVE REPORT, FAXED D/C ORDER AND MEDS TO [facility].
--- NOTE | 2016-12-31 15:19 | NUR ---
CALLED [facility] TO GET TRANSPORT TO HOME.
--- NOTE | 2016-12-31 15:43 | NUR ---
[facility], SON IS THERE WAITING FOR HIM TO ARRIVE, PATIENT'S BELONGINGS ACCOUNTED FOR AND PACKED.
--- NOTE | 2017-01-01 03:46 | DS ---
PATIENT:MO PRECIADO :28 MEDICAL RECORD: [id number] DISCHARGE SUMMARY ADMISSION DATE: 12/13/16 DISCHARGE DATE: 12/31/16 DATE OF ADMISSION: 12/13/2016 DATE OF DISCHARGE: 12/31/2016 HISTORY: First long term admission for this 86-year-old white male, who was accepted on transfer from [facility]. He had been there approximately a month. He had exhibited worsening memory deficits, combativeness and lack of cooperation. Because of worsening mentation and combativeness, the patient required psychiatric hospitalization COURSE IN THE HOSPITAL: The patient was seen in consultation by Dr. Watson. Dr. Watson noted the presence of type 2 diabetes, hypertension, hypothyroidism, cardiac arrhythmias, benign prosthetic hyperplasia, and a past history of prostate cancer. The patient was treated in a conservative fashion. He was started on Risperdal 0.5 mg twice a day for control of his agitation. He was also given trazodone 75 mg at bed time for insomnia. Aside from this, he was kept on routine doses of Senokot and vitamin D, Flomax, Synthroid, Glucotrol, Mexitil and Lantus insulin. The patient did well over the course of the hospitalization. Case management worked very closely with the patient's family regarding discharge plans. Eventually, the family elected to have the patient return home and hopefully have in-home care provided. The patient was discharged in stable condition. FINAL DIAGNOSES: AXIS I: Alzheimer dementia with behavioral disturbance. AXIS II: No diagnosis. AXIS III: Type 2 diabetes, hypertension, hypothyroidism, cardiac arrhythmias, and history of prostate cancer. AXIS IV: Moderate. AXIS V: 38. PLAN: 1. The patient is discharged on current medication. 2. Home health care to assess the patient and follow for management. 3. Follow up with primary care physician. 4. Continue current medication regimen. TRANSINT:[id number] Voice Confirmation ID: [id number] DOCUMENT ID: [id number] NILES REES III, MD at 0346 CC: [id number] DICTATION DATE: 12/31/16 1142 CIVIL ESTIMATOR: 01/01/17 0234 DIS IN 12/31/16 [place] [address]
== END 2016-12-31 15:52 | disposition home health service (06) | DRG 57 ==
LOC: D.PSYCH 12:08
PROVIDERS: ADMIT Psychiatry & Neurology Psychiatry
DX: G30.9 Alzheimer's disease, unspecified (principal); F02.81 Dementia in other diseases classified elsewhere, unspecified severity, with behavioral disturbance; E11.9 Type 2 diabetes mellitus without complications; I10 Essential (primary) hypertension; E03.9 Hypothyroidism, unspecified; Z85.46 Personal history of malignant neoplasm of prostate; Z74.09 Other reduced mobility; N40.0 Benign prostatic hyperplasia without lower urinary tract symptoms; E55.9 Vitamin D deficiency, unspecified